=== PATIENT | male | born 1975 ===

== ENCOUNTER 2023-04-05 18:16 | Emergency (ER) | payer SELFPAY ==
[~2023-04-05] VITALS: Ht 177.8 cm; Wt 86.4 kg
[2023-04-05 18:35] VITALS: TEMP 98.6
[2023-04-05 23:48] LABS: BASOPHILS % (AUTO) 0.6 % (0.0-2.0); EOSINOPHILS % (AUTO) 2.9 % (1.0-6.0); HEMATOCRIT 39.8 % (41-53); HEMOGLOBIN 13.5 g/dL (13.5-17.5); LYMPHOCYTES # (AUTO) 1.5 K/uL (1.0-4.8); LYMPHOCYTES % (AUTO) 24.5 % (22.0-44.0); MEAN CORPUSCULAR HEMOGLOBIN 30.3 pg (26.0-34.0); MEAN CORPUSCULAR VOLUME 89 fL (80-100); MONOCYTES # (AUTO) 0.6 K/uL (0.1-1.0); MONOCYTES % (AUTO) 10.5 % (2.0-9.0); NEUTROPHILS # (AUTO) 3.7 K/uL (1.8-7.7); NEUTROPHILS % (AUTO) 61.5 % (40.0-70.0); PLATELET COUNT (AUTO) 319 K/uL (150-450); RED BLOOD CELL COUNT(AUTO) 4.46 MIL/uL (4.50-5.90); RED CELL DISTRIBUTION WIDTH 13.4 % (11.5-14.5)
[2023-04-06 00:01] LABS: ANION GAP 14 mmol/L (8-16); CALCIUM, TOTAL 8.8 mg/dL (8.8-10.5); CARBON DIOXIDE 26 mmol/L (22-29); CHLORIDE 98 mmol/L (98-107); CREATININE 0.86 mg/dL (0.60-1.30); GLOMERULAR FILTR. RATE CALC > 60 mL/min (>60); GLUCOSE,RANDOM 70 mg/dL (70-110); POTASSIUM 3.4 mmol/L (3.5-5.1); SODIUM SERUM 138 mmol/L (136-145); UREA NITROGEN, BLOOD 16 mg/dL (7-18)
[2023-04-06 00:07] LABS: ALANINE AMINOTRANSFERASE 47 U/L (12-78); ALBUMIN 3.8 g/dL (3.4-5.0); ALKALINE PHOSPHATASE 89 U/L (46-116); ASPARTATE AMINOTRANSFERASE 47 U/L (15-37); BILIRUBIN,TOTAL 1.2 mg/dL (0.1-1.0); TOTAL PROTEIN, SERUM 6.9 g/dL (6.4-8.2)
[2023-04-06 00:10] LABS: ALCOHOL, BLOOD (SERUM) < 3 mg/dL (0-10)
[2023-04-06 00:55] LABS: COVID AG,FIA SOURCE NASAL SWAB
[2023-04-06 01:14] LABS: SARS-COV2 (COVID) ANTIGEN,FIA Negative (Negative)
[2023-04-06] MEDS ORDERED: LORazepam 1 MG TABLET PO ONE (01:15)
[2023-04-06] MEDS ORDERED: LORazepam 0.5 MG TABLET PO ONE (01:15)
[2023-04-06] MEDS ORDERED: HALOPERIDOL 5 MG TABLET PO ONE (01:15)
[2023-04-06 04:47] VITALS: BP 120/74; PULSE 70; RESP 20
== END 2023-04-06 05:07 | disposition home or self-care (01) ==
LOC: EMS 18:17 → EDBD 18:17 → EMS 04-06 05:07
DX: F32.A Depression, unspecified (principal); F41.9 Anxiety disorder, unspecified; Z88.0 Allergy status to penicillin; Z20.822 Contact with and (suspected) exposure to COVID-19
CPT/HCPCS: 80053; 85025; 36415; 99283; 87426; G0480

== ENCOUNTER 2025-01-06 02:11 | Inpatient (IN) | payer MEDICAID ==
[~2025-01-06] VITALS: Ht 177.8 cm; Wt 75.0 kg
[2025-01-06] MEDS ORDERED: ZOLPIDEM TARTRATE 10 MG TABLET PO PRN (02:30)
[2025-01-06 03:24] VITALS: BP 114/71; PULSE 68; RESP 16; TEMP 98.1; O2SAT 100
[2025-01-06 04:57] VITALS: BP 114/71; PULSE 68; RESP 16; TEMP 98.1
[2025-01-06] MEDS: INFLUENZA VIRUS VACCINE TVS (6MO+) 2025-26/PF 45 MCG/0.5 ML SYRINGE IM. ONE (05:45)
[2025-01-06] MEDS ORDERED: NICOTINE POLACRILEX 2 MG LOZENGE PO PRN (06:45)
[2025-01-06] MEDS: GABAPENTIN 100 MG CAPSULE PO SCH (09:53)
[2025-01-06 10:00] VITALS: BP 112/74; PULSE 70; RESP 16; TEMP 98.2
[2025-01-06] MEDS: ESCITALOPRAM OXALATE 20 MG TABLET PO SCH (12:25)
[2025-01-06] MEDS ORDERED: DOCUSATE SODIUM 100 MG CAPSULE PO PRN (12:30)
[2025-01-06] MEDS ORDERED: PETROLATUM,WHITE 28 GM JELLY TP PRN (12:30)
[2025-01-06] MEDS ORDERED: GuaiFENesin/D-METHORPHAN [SUGAR-FREE] 200-20MG/10 ML SYRUP UDCUP PO PRN (12:30)
[2025-01-06] MEDS ORDERED: ALBUTEROL SULFATE HFA 90 MCG/PUFF 8 GM INHALER IH PRN (12:30)
[2025-01-06] MEDS ORDERED: IBUPROFEN 400 MG TABLET PO PRN (12:30)
[2025-01-06] MEDS ORDERED: ONDANSETRON 4 MG TABLET PO PRN (12:30)
[2025-01-06] MEDS ORDERED: LOPERAMIDE HCL 2 MG CAPSULE PO PRN (12:30)
[2025-01-06] MEDS ORDERED: MAGNESIUM HYDROXIDE SUSPENSION 30 ML UDCUP PO PRN (12:30)
[2025-01-06] MEDS ORDERED: NICOTINE 14 MG/24 HOUR PATCH TD PRN (12:30)
[2025-01-06] MEDS ORDERED: ACETAMINOPHEN 325 MG TABLET PO PRN (12:30)
[2025-01-06 20:10] VITALS: BP 104/66; PULSE 69; RESP 18; TEMP 98.2; O2SAT 100
[2025-01-07 08:05] VITALS: BP 109/73; PULSE 80; RESP 15; TEMP 98.6; O2SAT 100
[2025-01-07 09:35] LABS: PLATELET COUNT (AUTO) 317 K/uL (150-450); RED BLOOD CELL COUNT(AUTO) 4.85 MIL/uL (4.50-5.90); RED CELL DISTRIBUTION WIDTH 12.9 % (11.5-14.5); WHITE BLOOD COUNT (AUTO) 4.5 K/uL (4.5-11.0)
[2025-01-07 09:55] LABS: APPEARANCE,URINE CLEAR (CLEAR); GLUCOSE, URINE (UA) NEGATIVE (NEGATIVE); LEUKOCYTE ESTERASE ,URINE NEGATIVE (NEGATIVE); NITRATE,URINE NEGATIVE (NEGATIVE); OCCULT BLOOD,URINE NEGATIVE (NEGATIVE); PH,URINE DRUG SCREEN 6.0 (5.0-8.0); SPECIFIC GRAVITIY, URINE 1.024 (1.003-1.030)
[2025-01-07 10:01] LABS: ASPARTATE AMINOTRANSFERASE 20 U/L (15-37); CALCIUM, TOTAL 8.4 mg/dL (8.8-10.5); CHOL/HDL RATIO 3.7 (4.2-7.3); CREATININE 0.94 mg/dL (0.60-1.30); GLOMERULAR FILTR. RATE CALC > 60 mL/min (>60); GLUCOSE,RANDOM 67 mg/dL (70-110); LDL CHOL (CALC.) 134 mg/dL (0-130); SODIUM SERUM 142 mmol/L (136-145); TOTAL PROTEIN, SERUM 6.6 g/dL (6.4-8.2); UREA NITROGEN, BLOOD 17 mg/dL (7-18)
[2025-01-07 10:09] LABS: AMPHET/METH SCREEN,URINE POSITIVE (NEGATIVE); BARBITURATE SCREEN, URINE NEGATIVE (NEGATIVE); CANNABINOID SCREEN,URINE NEGATIVE (NEGATIVE); COCAINE SCREEN,URINE NEGATIVE (NEGATIVE); METHADONE SCREEN, URINE NEGATIVE (NEGATIVE)
[2025-01-07 10:21] LABS: ALCOHOL, URINE DRUG SCREEN NEGATIVE (NEGATIVE)
[2025-01-07 20:26] VITALS: BP 104/73; PULSE 71; RESP 18; TEMP 98.9; O2SAT 99
[2025-01-08 08:17] VITALS: BP 125/82; PULSE 87; RESP 18; TEMP 97.8; O2SAT 97
[2025-01-08 20:16] VITALS: BP 120/83; PULSE 66; RESP 18; TEMP 98.4; O2SAT 98
[2025-01-08] MEDS: MAG HYDROX/ALUMINUM HYD/SIMETH ES 30 ML SUSPENSION UDCUP PO PRN (21:42)
[2025-01-09 08:32] VITALS: BP 104/69; PULSE 69; RESP 18; TEMP 97.6; O2SAT 100
[2025-01-09 20:41] VITALS: BP 108/75; PULSE 72; RESP 17; TEMP 98.1; O2SAT 98
[2025-01-10 08:25] VITALS: BP 104/70; PULSE 72; RESP 17; TEMP 98.1; O2SAT 98
[2025-01-10 09:00] LABS: PH,URINE DRUG SCREEN 6.0 (5.0-8.0)
[2025-01-10 09:12] LABS: ALCOHOL, URINE DRUG SCREEN NEGATIVE (NEGATIVE); AMPHET/METH SCREEN,URINE NEGATIVE (NEGATIVE); BARBITURATE SCREEN, URINE NEGATIVE (NEGATIVE); CANNABINOID SCREEN,URINE NEGATIVE (NEGATIVE); COCAINE SCREEN,URINE NEGATIVE (NEGATIVE); METHADONE SCREEN, URINE NEGATIVE (NEGATIVE)
[2025-01-10] MEDS ORDERED: ESCI20TA87 PO (15:52)
[2025-01-10] MEDS ORDERED: OLAN10TA74 PO (15:52)
[2025-01-10] MEDS ORDERED: GABA-1216 PO (15:52)
== END 2025-01-10 16:58 | disposition home or self-care (01) | DRG 750 ==
LOC: B3A 02:27
PROVIDERS: ADMIT Psychiatry & Neurology Child & Adolescent Psychiatry; ATTEND Psychiatry & Neurology Child & Adolescent Psychiatry
PROC: GZ58ZZZ Individual Psychotherapy, Cognitive-Behavioral (ICD-10-PCS; principal; 2025-01-06)
PROC: GZ56ZZZ Individual Psychotherapy, Supportive (ICD-10-PCS; 2025-01-06)
DX: F29 Unspecified psychosis not due to a substance or known physiological condition (principal); E78.5 Hyperlipidemia, unspecified; F15.10 Other stimulant abuse, uncomplicated; F32.A Depression, unspecified; F41.9 Anxiety disorder, unspecified; I10 Essential (primary) hypertension; G47.00 Insomnia, unspecified; F19.10 Other psychoactive substance abuse, uncomplicated; Z88.0 Allergy status to penicillin
CPT/HCPCS: 80053; 80061; 80307; 81003; 83036; 84439; 84443; 85025; 90686